=== PATIENT | male | born 1985 | race Caucasian/White ===

== ENCOUNTER 2016-07-07 11:27 | Emergency (ER) | payer MEDICAID ==
[~2016-07-07] VITALS: Wt 86.0 kg
[2016-07-07 11:29] VITALS: Wt 86.0 kg
[2016-07-07] MEDS ORDERED: HYDR-902 PO (12:25)
--- NOTE | 2016-07-07 12:34 | ERD ---
ER Documentation Chief Complaint Date/Time DATE: 07/07/16 TIME: 12:26 Chief Complaint chronic neck pain no recent trauma no neurodeficit HPI Patient is a 30-year-old male who presents to the emergency department with neck pain. 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 Patient states that he is new to the other area and is trying to heal his primary care for further management of his chronic pain. Patient states over the last 3 months pain has become more severe, pain level is an 7/10. Patient states that the pain is worse with neck movement. He states that he constantly has to crack his neck to alleviate the pain. She denies any neck stiffness or radiating pain down his back. Patient denies any extremity weakness, numbness, tingling, saddle anesthesia, urinary incontinence, stool incontinence, fever, IV drug use or new trauma. Patient has been taking ibuprofen 800 mg for his pain which she states does intermittently alleviate the pain. ROS All systems reviewed and are negative except as per history of present illness. Medications Home Meds Active Scripts Ibuprofen* (Ibuprofen*) 600 Mg Tablet, 600 MG PO Q6, #30 TAB Prov:NURIS PELAYO PA-C 07/07/16 Hydrocodone/Acetaminophen ([place] 10-325 Tablet) 1 Each Tablet, 1 EACH PO Q6 for PAIN, #10 TAB Prov:NURIS PELAYO PA-C 07/07/16 Allergies Allergies: Coded Allergies: No Known Allergy (Unverified , 07/07/16) PMhx/Soc Medical and Surgical Hx: pt denies Medical Hx History of Surgery: Yes (l. wrist ORIF) Anesthesia Reaction: No Hx Neurological Disorder: No Hx Respiratory Disorders: No Hx Cardiac Disorders: No Hx Psychiatric Problems: No Hx Miscellaneous Medical Probl: Yes (chronic neck/back pain x 6 years) Hx Alcohol Use: Yes Hx Substance Use: Yes (marijuana) Hx Tobacco Use: Yes Smoking Status: Current every day smoker FmHx Family History: No diabetes Physical Exam Vitals Vital Signs Date Time Temp Pulse Resp B/P Pulse Ox O2 Delivery O2 Flow Rate FiO2 07/07/16 11:29 98.2 99 18 156/74 99 Physical Exam General: Well-developed, well-nourished male. Appears in no acute distress. Head: Normocephalic, atraumatic. Eyes: Pupils are equally reactive bilaterally. EOMs grossly intact. No conjunctival erythema. ENT: Moist mucous membranes. Neck: Supple. No lymphadenopathy or thyromegaly. No meningeal signs. No neck stiffness. Normal active and passive range of motion of neck. No Cervical spine midline tenderness. Back: No midline spinal tenderness. Active and passive range of motion of spine. Lungs: Clear to auscultation bilaterally. No rhonchi, wheezing, rales or coarse breath sounds. Heart: Regular rate and rhythm. No murmurs, rubs or gallops. Abdomen: Soft, nontender, and nondistended. No rebound tenderness, no guarding. (-) McBurneys point tenderness. (-) Psoas sign. (-) [place] sign. No CVA tenderness. Extremities: No pedal edema, unilateral leg swelling. 5/5 strength in all extremities. Neurologic: Alert and oriented x3, cooperative. Mood and affect appropriate to situation. Cranial nerves II through XII are grossly intact. Normal speech. Motor exam: 5/5 strength in upper and lower extremities. Sensory exam: Sensation intact to light touch on all four extremities. No dysmetria on finger- to-nose. Steady gait. No pronator drift. (-) Brudzinski sign. (-) Kernig's sign. Skin: Normal color. Warm and dry. No rashes or lesions. Procedures/MDM ED COURSE: The patient was stable throughout ED course. I kept the patient and/or family informed of laboratory and diagnostic imaging results throughout the ED course. DIAGNOSTIC IMAGING: Read by radiologist. DIAGNOSTIC IMAGING REPORT Patient: JENIFER FRENCH : 1985 Age: 30 Sex: M MR #: [id number] DOS: 07/07/16 1219 Ordering MD: NURIS PELAYO PA-C Location: [facility] Room/Bed: PROCEDURE: XR Cervical Spine. CLINICAL INDICATION: Neck pain TECHNIQUE: Three views of the cervical spine were performed. COMPARISON: None. FINDINGS: The cervical vertebral bodies are normal in mineralization, architecture and alignment. No fracture or osseous lesion is identified. No subluxation is demonstrated. The disk spaces are unremarkable. The uncinate joints are unremarkable. The facet joints are unremarkable. No soft tissue abnormality is identified. IMPRESSION: Unremarkable cervical spine. RPTAT: HGDB .Maxi Fields MD, MD Date Time Electronically viewed and signed by .Maxi Fields MD, MD on 07/07/2016 13:15 .B/ CC: NURIS PELAYO PA-C DIAGNOSTIC IMAGING REPORT Patient: JENIFER FRENCH : 1985 Age: 30 Sex: M MR #: [id number] DOS: 07/07/16 1219 Ordering MD: NURIS PELAYO PA-C Location: [facility] Room/Bed: PROCEDURE: XR thoracic spine. CLINICAL INDICATION: Back pain TECHNIQUE: AP and lateral radiographs of the thoracic spine are available for review. COMPARISON: None. FINDINGS: . The thoracic spine is normal in mineralization, architecture and alignment. No fractures or osseous lesions are identified. The disk spaces are unremarkable. The soft tissues are unremarkable. IMPRESSION: Unremarkable examination. RPTAT: HGDB .Maxi Fields MD, MD Date Time Electronically viewed and signed by .Maxi Fields MD, MD on 07/07/2016 13:15 .B/ CC: NURIS PELAYO PA-C MEDICAL DECISION MAKING: This is a 30-year-old male who presents with chronic neck pain status post fall injury approximately 6 years ago. Vital signs were reviewed. Patient was afebrile. Patient has normal range of motion of his neck and spine. Patient denied any saddle anesthesia, urinary incontinence, bowel incontinence, night pain or recent trauma. Cervical and thoracic spine x-rays were unremarkable. Given these findings, the patients presentation is most consistent with chronic neck pain. I have a much lower clinical concern for fracture, dislocation, epidural abscess, cervical disc herniation, osteomyelitis, meningitis, whiplash injury, torticollis, acute neurological deficit, cauda equine syndrome, spondylolisthesis, DJD, sciatica, lumbar strain, muscle spasm, pyelonephritis or nephrolithiasis. PRESCRIPTIONS: [place] 10-325 mg, 10 tabs. Refills 0 Ibuprofen DISCHARGE: At this time, patient is stable for discharge and outpatient management. RICE therapy and ROM exercises were advised to avoid stiffness. I have instructed the patient to follow-up with his/her primary care physician in 1-2 days. I have discussed with the patient the possibility of needing to see an orthopedic nurse practitioner/pain management for further workup and imaging if the pain persists. Contact information provided. I have instructed the patient to promptly return to the ER for any new or worsening symptoms including increased pain, swelling, warmth, urinary incontinence, stool incontinence, weakness or numbness. The patient and/or family expressed understanding of and agreement with this plan. All questions were answered. Home care instructions were provided. Departure Diagnosis: Primary Impression: Neck pain Additional Impression: Injury of neck Encounter type: subsequent encounter Qualified Code: S19.9XXD - Injury of neck, subsequent encounter Condition: Stable Patient Instructions: Chronic Pain, Back And Neck Pain, General Referrals: [facility] YOU HAVE RECEIVED A MEDICAL SCREENING EXAM AND THE RESULTS INDICATE THAT YOU DO NOT HAVE A CONDITION THAT REQUIRES URGENT TREATMENT IN THE EMERGENCY DEPARTMENT. FURTHER EVALUATION AND TREATMENT OF YOUR CONDITION CAN WAIT UNTIL YOU ARE SEEN IN YOUR DOCTORS OFFICE WITHIN THE NEXT 1-2 DAYS. IT IS YOUR RESPONSIBILITY TO MAKE AN APPOINTMENT FOR FOLOW-UP CARE. IF YOU HAVE A PRIMARY DOCTOR --you should call your primary doctor and schedule an appointment IF YOU DO NOT HAVE A PRIMARY DOCTOR YOU CAN CALL OUR PHYSICIAN REFERRAL HOTLINE AT IF YOU CAN NOT AFFORD TO SEE A PHYSICIAN YOU CAN CHOSE FROM THE FOLLOWING [facility] [address] [facility] [address] [facility] [address] [facility] [address] [facility] [address] [facility] [address] [facility]. [facility] YOU HAVE RECEIVED A MEDICAL SCREENING EXAM AND THE RESULTS INDICATE THAT YOU DO NOT HAVE A CONDITION THAT REQUIRES URGENT TREATMENT IN THE EMERGENCY DEPARTMENT. FURTHER EVALUATION AND TREATMENT OF YOUR CONDITION CAN WAIT UNTIL YOU ARE SEEN IN YOUR DOCTORS OFFICE WITHIN THE NEXT 1-2 DAYS. IT IS YOUR RESPONSIBILITY TO MAKE AN APPOINTMENT FOR FOLOW-UP CARE. IF YOU HAVE A PRIMARY DOCTOR --you should call your primary doctor and schedule and appointment IF YOU DO NOT HAVE A PRIMARY DOCTOR YOU CAN CALL OUR PHYSICIAN REFERRAL HOTLINE AT . IF YOU CAN NOT AFFORD TO SEE A PHYSICIAN YOU CAN CHOSE FROM THE FOLLOWING [facility] INSTITUTIONS: [facility] [address] [place] [address] [facility] [address] [place] [address] [facility] [address] [place] [address] [facility] Hours: Mon-Fri 9:00 AM - 5:00 PM Additional Instructions: Call your primary care doctor TOMORROW for an appointment during the next 1-2 days.See the doctor sooner or return here if your condition worsens before your appointment time. Range of motion exercises advised to avoid neck stiffness. Patient will need to follow-up with pain management and/or orthopedic nurse practitioner for further management and workup. NURIS PELAYO PA-C Jul 07, 2016 12:33
--- NOTE | 2016-07-07 13:15 | RADRPT ---
PROCEDURE: XR thoracic spine. CLINICAL INDICATION: Back pain TECHNIQUE: AP and lateral radiographs of the thoracic spine are available for review. COMPARISON: None. FINDINGS: . The thoracic spine is normal in mineralization, architecture and alignment. No fractures or osseous lesions are identified. The disk spaces are unremarkable. The soft tissues are unremarkable. IMPRESSION: Unremarkable examination. RPTAT: HGDB .Maxi Fields MD, MD Date Time Electronically viewed and signed by .Maxi Fields MD, on 07/07/2016 13:15 .B/
--- NOTE | 2016-07-07 13:15 | RADRPT ---
PROCEDURE: XR Cervical Spine. CLINICAL INDICATION: Neck pain TECHNIQUE: Three views of the cervical spine were performed. COMPARISON: None. FINDINGS: The cervical vertebral bodies are normal in mineralization, architecture and alignment. No fracture or osseous lesion is identified. No subluxation is demonstrated. The disk spaces are unremarkable. The uncinate joints are unremarkable. The facet joints are unremarkable. No soft tissue abnormal ity is identified. IMPRESSION: Unremarkable cervical spine. RPTAT: HGDB .Maxi Fields MD, MD Date Time Electronically viewed and signed by .Maxi Fields MD, on 07/07/2016 13:15 .B/
[2016-07-07] MEDS ORDERED: IBUP-1542 PO (13:52)
== END 2016-07-07 14:10 | disposition home or self-care (01) ==
LOC: FTE 11:27
DX: M54.2 Cervicalgia (principal); F17.210 Nicotine dependence, cigarettes, uncomplicated
CPT/HCPCS: 72040; 72072; Z7502

== ENCOUNTER 2017-08-06 13:06 | Emergency (ER) | END 2017-08-06 21:02 | disposition home or self-care (01) ==

== ENCOUNTER 2017-09-26 04:47 | Emergency (ER) | END 2017-09-26 06:30 | disposition home or self-care (01) ==

== ENCOUNTER 2017-11-14 03:54 | Emergency (ER) | END 2017-11-14 05:40 | disposition home or self-care (01) ==

== ENCOUNTER 2017-11-26 21:37 | Emergency (ER) | END 2017-11-26 22:42 | disposition home or self-care (01) ==

== ENCOUNTER 2018-01-11 05:56 | Emergency (ER) | END 2018-01-11 06:59 | disposition home or self-care (01) ==

== ENCOUNTER 2018-01-30 17:26 | Emergency (ER) | END 2018-01-30 18:38 | disposition home or self-care (01) ==

== ENCOUNTER 2018-02-05 11:56 | Emergency (ER) | END 2018-02-05 12:40 | disposition home or self-care (01) ==

== ENCOUNTER 2018-02-28 01:37 | Emergency (ER) | END 2018-02-28 05:28 | disposition home or self-care (01) ==